=== PATIENT | female | born 1975 | race Caucasian/White ===

== ENCOUNTER → 2017-11-22 | Outpatient (CLI) | payer BC | LOC: BMCIMAGING 14:50 | DX: Z13.820 Encounter for screening for osteoporosis (principal); M85.89 Other specified disorders of bone density and structure, multiple sites; Z82.62 Family history of osteoporosis; Z79.899 Other long term (current) drug therapy ==

== ENCOUNTER → 2017-11-30 | Outpatient (CLI) | payer BC | LOC: BMCIMAGING 13:34 | DX: Z12.31 Encounter for screening mammogram for malignant neoplasm of breast (principal) ==

== ENCOUNTER 2018-06-12 15:18 | Emergency (ER) | payer BC ==
[2018-06-12] MEDS ORDERED: IBUPROFEN 600 MG TAB PO ONE (15:37)
--- NOTE | 2018-06-12 15:39 | EDPHY ---
H & P Time Seen by Provider: 06/12/18 15:26 HPI/ROS: CHIEF COMPLAINT: Left elbow pain post mechanical fall HISTORY OF PRESENT ILLNESS: 42-year-old female via private vehicle complaining of acute left elbow pain after she was walking her dog, sustained a mechanical fall landing on her left elbow. Complaining of acute left elbow pain. Denies other injury. Denies proximal or distal pain or injury. Denies head injury. PHYSICAL EXAM (Prior to examination, patient consented to physical exam, hands were washed and my usual and customary physical exam procedures followed) 1) GENERAL: [Well-developed, well-nourished, alert and oriented. Appears uncomfortable 2) HEAD: Normocephalic 3) HEENT: Pupils equal, round, reactive to light bilaterally. 4) LUNGS: Breathing comfortably. 5) MUSCULOSKELETAL: Left upper extremity: The elbow is kept slightly flexed. Focally tender to palpation dorsal aspect of the elbow. Intact skin. No region. No laceration. Proximally distally nontender. Soft compartments. Brisk pulses distally. Soft compartments. Normal coloration. 6) SKIN: Intact 7) VASCULAR: pulses and cap refill present are brisk 8) NEUROLOGIC: Radial, ulnar, median nerve function intact with no deficits appreciated on exam DIFFERENTIAL DIAGNOSIS: in no particular order including but not limited to fracture, sprain, compartment syndrome Smoking Status: Former smoker Constitutional: Initial Vital Signs Temperature (C) 36.4 C 06/12/18 15:26 Heart Rate 73 06/12/18 15:26 Respiratory Rate 16 06/12/18 15:26 Blood Pressure 105/59 L 06/12/18 15:26 O2 Sat (%) 97 06/12/18 15:26 O2 Delivery Mode Room Air Allergies/Adverse Reactions: No Known Allergies Allergy (Unverified 06/12/18 15:38) Home Medications: Medication Instructions Recorded HYDROmorphone HCL [Dilaudid 2 mg 2 mg PO Q6 PRN #7 tab 06/12/18 (RX)] MDM/Departure - MDM Imaging Results: Imaging Impressions Elbow X-Ray 06/12/18 15:26 Impression: Large joint effusion suggesting radiographically occult fracture, statistically likely to be in the radial head. Findings discussed with Luli Bo 06/12/2018 at 16:11. Images reviewed myself Procedures: Procedure: Splint an upper extremity sling splint was applied by ER wafer fabrication technician. After application of the splint I returned and re-examined the patient. The splint was adequately immobilizing the joint and distal to the splint the patient's circulation and sensation were intact. Patient shows no signs of compartment syndrome. Was given orthopedic precautions. Medications Given: Discontinued Medications Hydromorphone HCl (Dilaudid) 2 mg PO EDNOW ONE Stop: 06/12/18 16:09 Last Admin: 06/12/18 16:13 Dose: 2 mg Ibuprofen (Motrin) 600 mg PO EDNOW ONE Stop: 06/12/18 15:38 Last Admin: 06/12/18 15:39 Dose: 600 mg ED Course/Re-evaluation: Patient has been re-evaluated with serial exams. She has been informed that occult fracture not ruled out particularly as she has pain location of the radial head, noted to have an effusion in same area. In addition she has been informed that non osseous injury is not ruled out. Therefore, the importance of follow-up with orthopedics has been stressed on numerous instances and she agrees to follow up with Orthopedics on outpatient basis. Do not think that more advanced imaging indicated on emergent basis. He has been placed into a splint. Doubt compartment syndrome. She is neurovascularly intact. She informs me that she has adverse reactions to Vicodin and Percocet however Dilaudid she is able to tolerate. I have given her Dilaudid tablet in the ER and agreed to give her a small prescription for Dilaudid tablets. Patient feels comfortable being discharged. All questions and concerns addressed by myself. Patient given my usual and customary discharge precautions and instructions regarding their clinical impression. Care of patient under supervision of secondary supervising physician Dr Gross . - Depart Disposition: Home, Routine, Self-Care Clinical Impression: Left elbow pain, Walking an animal Condition: Good Instructions: Elbow Sprain (ED) Additional Instructions: Return to the ER immediately if you experience discoloration, have worsening pain, numbness, tingling, or any other symptoms that concern you. If you received x-rays in the emergency department today, be advised, that ligamentous , tendon, muscular, and other non-bony injury cannot be fully ruled out. Try to keep your affected extremity elevated above the level of your chest, and keep cold packs on the affected area, for the next 48 hours. Adult Pain & Fever Control: We recommend Acetaminophen (Tylenol) and Ibuprofen (Motrin,Advil) for pain and fever control. When fever is high or pain severe, both drugs can be used at the same time, but at different intervals. Please note the time differences. Your dose is: Acetaminophen 650mg every 4 to 6 hours Ibuprofen 600mg every 6 hours with food OR Note: do not take Acetaminophen with Hydrocodone (Vicodin, Lortab) or Oycodone (Percocet). These medications also contain Acetaminophen. No more than 3000mg of Acetaminophen should be taken in 24 hours (for an adult). Prescriptions: HYDROmorphone HCL [Dilaudid 2 mg (RX)] 2 mg PO Q6 PRN #7 tab PRN Reason: Pain, Severe Referrals: Marcos Bueno MD [Medical Doctor] - 2-3 days, call for appt.
[2018-06-12] MEDS ORDERED: HYDROmorphONE/DILAUDID 2 MG TAB PO ONE (16:08)
[2018-06-12 16:26] VITALS: BP 114/79
== END 2018-06-12 16:25 | disposition home or self-care (01) ==
DX: S59.902A Unspecified injury of left elbow, initial encounter (principal); W19.XXXA Unspecified fall, initial encounter; Y93.K1 Activity, walking an animal; Z87.891 Personal history of nicotine dependence
CPT/HCPCS: A4565